=== PATIENT | female | born 1965 ===

== ENCOUNTER 2016-08-08 20:09 | Emergency (ER) | payer OTHER, SELFPAY ==
[2016-08-08 20:20] VITALS: O2SAT 100
[2016-08-08] MEDS ORDERED: Iohexol 240 (50 ml) PO STA (21:15)
[2016-08-08 21:44] LABS: BASO # 0.1 K/uL (0.0-0.2); BASO % 0.9 % (0.0-2.0); EOS # 0.2 K/uL (0.0-0.7); EOS % 3.1 % (0.0-4.0); HEMATOCRIT 33.2 % (34.0-47.0); LYMPH # 3.6 K/uL (1.0-4.3); LYMPH % 45.3 % (20.0-40.0); MEAN CORPUSCULAR HEMOGLOBIN 23.6 pg (27.0-31.0); MEAN CORPUSCULAR HGB CONC 33.1 g/dL (33.0-37.0); MEAN PLATELET VOLUME 8.6 fL (7.2-11.7); MONO # 0.6 K/uL (0.0-0.8); MONO % 7.1 % (0.0-10.0); NRBC % 0.1 % (0.0-2.0); RED CELL DISTRIBUTION WIDTH 15.7 % (11.5-14.5); WHITE BLOOD COUNT 7.9 K/uL (4.8-10.8)
[2016-08-08 21:45] LABS: MEAN CELL VOLUME 71.2 fL (81.0-99.0)
[2016-08-08 21:52] LABS: CHLORIDE 105 mmol/L (98-107); POTASSIUM 4.1 mmol/L (3.6-5.2); SODIUM 140 mmol/L (132-148)
[2016-08-08 21:54] LABS: ALB/GLOB RATIO 1.1 (1.0-2.1); ALKALINE PHOSPHATASE 91 U/L (38-126); AST/SGOT 23 U/L (14-36); BILIRUBIN,TOTAL 0.1 mg/dL (0.2-1.3); BLOOD UREA NITROGEN 16 mg/dL (7-17); CARBON DIOXIDE 23 mmol/L (22-30); GFR AFRICAN-AMERICAN > 60; TOTAL PROTEIN 7.1 g/dL (6.3-8.3)
[2016-08-08 21:55] LABS: ALT/SGPT 25 U/L (9-52); CALCIUM 7.8 mg/dl (8.6-10.4); GLUCOSE,RANDOM 104 mg/dL (65-105)
[2016-08-08] MEDS ORDERED: Morphine 4 MG/ML VIAL ONE (22:03)
[2016-08-08] MEDS ORDERED: Iohexol 240 (50 ml) ONE (22:04)
[2016-08-08 22:18] LABS: RBC URINE < 1 /hpf (0-3); URINE BILIRUBIN NEGATIVE (NEGATIVE); URINE BLOOD NEGATIVE (NEGATIVE); URINE COLOR Yellow (YELLOW); URINE GLUCOSE (UA) NORMAL (Normal); URINE KETONE NEGATIVE (NEGATIVE); URINE LEUKOCYTE ESTERASE NEG Leu/uL (Negative); URINE PROTEIN NEGATIVE (NEGATIVE); URINE UROBILINOGEN NORMAL mg/dL (0.2-1.0); WBC URINE 1 /hpf (0-5)
--- NOTE | 2016-08-08 23:03 | C.PDOC ---
History Of Present Illness 51 year old female presents to the ED with complaints of abdominal pain that she describes as across the mid and upper abdomen that began three days ago. Patient states she has had similar pain for the last three years but the symptoms are worse which prompted visit. She notes taking motrin yesterday with no relief. Patient denies any fever, vomiting, nausea, or urinary symptoms. Time Seen by Provider: 08/08/16 21:05 Chief Complaint (Nursing): Abdominal Pain History Per: Patient History/Exam Limitations: no limitations Onset/Duration Of Symptoms: Days Current Symptoms Are (Timing): Still Present Location Of Pain/Discomfort: Diffuse (mid and upper diffuse pain) Quality Of Discomfort: "Pain" Associated Symptoms: denies: Fever, Chills, Nausea, Vomiting Past Medical History Reviewed: Historical Data, Nursing Documentation, Vital Signs Vital Signs: Last Vital Signs Temp 98.2 F 08/09/16 00:30 Pulse 62 08/09/16 00:30 Resp 18 08/09/16 00:30 BP 132/76 08/09/16 00:30 Pulse Ox 100 08/09/16 01:02 - Medical History PMH: Asthma, Hyperlipidemia Family History: States: Unknown Family Hx - Social History Hx Alcohol Use: No Hx Substance Use: No Review Of Systems Constitutional: Negative for: Fever, Chills, Sweats Respiratory: Negative for: Cough, Shortness of Breath Gastrointestinal: Positive for: Abdominal Pain. Negative for: Nausea, Vomiting , Diarrhea Genitourinary: Negative for: Dysuria, Hematuria Physical Exam - Physical Exam Appears: Non-toxic, No Acute Distress Skin: Warm, Dry Neck: Normal ROM, Supple Chest: Symmetrical, No Deformity Cardiovascular: Rhythm Regular, No Murmur Respiratory: No Rales, No Rhonchi, No Wheezing Gastrointestinal/Abdominal: Soft, Tenderness (mid-epigastric tenderness), No Distention, No Guarding, No Rebound Extremity: Normal ROM, No Tenderness Neurological/Psych: Oriented x3, Normal Speech, Normal Cognition ED Course And Treatment - Laboratory Results Result Diagrams: 08/08/16 21:40 08/08/16 21:40 O2 Sat by Pulse Oximetry: 100 - CT Scan/US Abd Other Rad Studies (CT/US): Radiology Report Reviewed CT/US Interpretation: FINDINGS: Lower thorax: Patchy bilateral groundglass attenuation within the visualized. lung bases, a nonspecific finding. . ABDOMEN: Liver: The liver is enlarged. Gallbladder and bile ducts: The gallbladder is decompressed. No calcified. stones. No significant intra- or extrahepatic biliary ductal dilation. Pancreas: Enhances homogeneously. No ductal dilation. No discrete mass. Spleen: No acute findings. Adrenals: No acute findings. Kidneys and ureters: No acute findings. No hydronephrosis or renal calculi. No discrete solid mass. . PELVIS: Bladder: No acute findings. Reproductive: No acute findings. Appendix: The air filled appendix is of normal caliber (series 2, image 60;. series 601, image 56. . ABDOMEN and PELVIS: Stomach and bowel: Oral contrast extends to the proximal small bowel, without. obstruction.Small bowel wall thickening but no surrounding inflammation or. fluid to confirm an acute enteritis. Peritoneum: No significant fluid collection. No free air. Lymph nodes: No pathologically enlarged lymph nodes. Vasculature: Unremarkable. Bones: No acute fracture. . IMPRESSION: Mural thickening within multiple loops of small bowel, without surrounding. inflammation or fluid to confirm an acute enteritis. . Dictated By: Bobbi Chan MD. Dictated Date/Time: 08/09/16 0051 Medical Decision Making Medical Decision Making: Pt remained stable in the ed Abd remained soft Unremarkable CT and labs discussed with pt Plan dc home clinic f/u Disposition Counseled Patient/Family Regarding: Diagnosis, Need For Followup - Disposition Referrals: Mare Pal MD [Medical Doctor] - Disposition: HOME/ ROUTINE Disposition Time: 00:58 Condition: GOOD Additional Instructions: Follow up with PMD Return to the ED for any new or worsening symptoms Prescriptions: Atropine/Hyoscyamine [] 1 tab PO TID PRN #20 tab PRN Reason: .abd pain Famotidine [Pepcid] 1 tab PO BID #30 tab Instructions: Abdominal Pain (ED) - Clinical Impression Clinical Impression: Abdominal pain - Scribe Statement The provider has reviewed the documentation as recorded by the Scribe Elba Hernández All medical record entries made by the Bridgetibe were at my direction and personally dictated by me. I have reviewed the chart and agree that the record accurately reflects my personal performance of the history, physical exam, medical decision making, and the department course for this patient. I have also personally directed, reviewed, and agree with the discharge instructions and disposition.
[2016-08-08] MEDS ORDERED: Iodixanol 320 MG/ML 100 ML BOTTLE IV ONE (23:44)
--- NOTE | 2016-08-09 00:51 | CT ---
EXAM: CT Abdomen and Pelvis With Intravenous Contrast CLINICAL HISTORY: 51 years old, female; Pain; Abdominal pain; Acute; Additional info: Mid abd pain TECHNIQUE: Axial computed tomography images of the abdomen and pelvis with intravenous contrast. This CT exam was performed using one or more of the following dose reduction techniques: automated exposure control, adjustment of the mA and/or kV according to patient size, and/or use of iterative reconstruction technique. Coronal and sagittal reformatted images were created and reviewed. CONTRAST: 100 mL of visi administered intravenously. COMPARISON: No relevant prior studies available. FINDINGS: Lower thorax: Patchy bilateral groundglass attenuation within the visualized lung bases, a nonspecific finding. ABDOMEN: Liver: The liver is enlarged. Gallbladder and bile ducts: The gallbladder is decompressed. No calcified stones. No significant intra- or extrahepatic biliary ductal dilation. Pancreas: Enhances homogeneously. No ductal dilation. No discrete mass. Spleen: No acute findings. Adrenals: No acute findings. Kidneys and ureters: No acute findings. No hydronephrosis or renal calculi. No discrete solid mass. PELVIS: Bladder: No acute findings. Reproductive: No acute findings. Appendix: The air filled appendix is of normal caliber (series 2, image 60; series 601, image 56. ABDOMEN and PELVIS: Stomach and bowel: Oral contrast extends to the proximal small bowel, without obstruction.Small bowel wall thickening but no surrounding inflammation or fluid to confirm an acute enteritis. Peritoneum: No significant fluid collection. No free air. Lymph nodes: No pathologically enlarged lymph nodes. Vasculature: Unremarkable. Bones: No acute fracture. IMPRESSION: Mural thickening within multiple loops of small bowel, without surrounding inflammation or fluid to confirm an acute enteritis.
[2016-08-09 01:13] VITALS: BP 132/76; PULSE 62; RESP 18; TEMP 98.2
== END 2016-08-09 01:13 | disposition home or self-care (01) ==
LOC: C.ER 20:09
DX: R10.13 Epigastric pain (principal)
CPT/HCPCS: 74177; 80053; 81001; 83690; 85025; 96374; 96375; 99285; J2270; Q9966; Q9967

== ENCOUNTER 2017-08-19 15:51 | Emergency (ER) | payer OTHER, SELFPAY ==
--- NOTE | 2017-08-19 16:29 | C.PDOC ---
History Of Present Illness 52-YEAR-OLD FEMALE, PRESENTS TO THE EMERGENCY DEPARTMENT WITH COMPLAINTS OF BACK PAIN, B/L X1 WEEK. LOWER PELVIC, SUPRAPUBIC PAIN X5 DAYS, ASSOCIATED DYSURIA. BACK PAIN WORSE W STANDING UPRIGHT. NO NVD, FEVER. LTD IMPROVEMENT W OTC PAIN MEDS. EXAM PAIN WITH FULL EXTENSION, NO SPASM. ABD NEG NEURO INTACT Time Seen by Provider: 08/19/17 16:08 Chief Complaint (Nursing): Back Pain History Per: Patient History/Exam Limitations: no limitations Past Medical History Reviewed: Historical Data, Nursing Documentation, Vital Signs Vital Signs: Last Vital Signs Temp 98.1 F 08/19/17 15:56 Pulse 75 08/19/17 15:56 Resp 16 08/19/17 15:56 BP 119/79 08/19/17 15:56 Pulse Ox 100 08/19/17 16:40 - Medical History PMH: Asthma, Hyperlipidemia Family History: States: No Known Family Hx - Social History Hx Alcohol Use: No Hx Substance Use: No - Immunization History Hx Tetanus Toxoid Vaccination: No Hx Influenza Vaccination: No Hx Pneumococcal Vaccination: No Review Of Systems Constitutional: Negative for: Fever Genitourinary: Positive for: Dysuria, Pelvic Pain. Negative for: Hematuria, Vaginal Discharge, Vaginal Bleeding Musculoskeletal: Positive for: Back Pain Skin: Negative for: Rash Neurological: Negative for: Weakness, Numbness, Headache, Dizziness Physical Exam - Physical Exam Appears: Non-toxic, No Acute Distress Skin: Normal Color, Warm, Dry, No Rash Head: Normacephalic Eye(s): bilateral: PERRL Nose: Normal Oral Mucosa: Moist Lips: Normal Appearing Neck: Normal ROM Cardiovascular: Rhythm Regular, No Murmur Respiratory: Normal Breath Sounds, No Accessory Muscle Use Gastrointestinal/Abdominal: Soft, No Tenderness, No Guarding, No Rebound Back: Other (PAIN WITH FULL EXTENSION, NO SPASM. ) Extremity: Normal ROM, No Deformity, No Swelling Neurological/Psych: Oriented x3, Normal Speech Gait: Steady ED Course And Treatment - Laboratory Results Result Diagrams: 08/19/17 17:25 08/19/17 17:25 O2 Sat by Pulse Oximetry: 100 (RA) Pulse Ox Interpretation: Normal Disposition - Disposition Disposition Time: 19:00 Condition: STABLE Forms: [email or web address] (Hebrew) - Clinical Impression Clinical Impression: Low back pain, Abdominal pain - Scribe Statement The provider has reviewed the documentation as recorded by the Scribe (Vik Arce) All medical record entries made by the Scribe were at my direction and personally dictated by me. I have reviewed the chart and agree that the record accurately reflects my personal performance of the history, physical exam, medical decision making, and the department course for this patient. I have also personally directed, reviewed, and agree with the discharge instructions and disposition. Physician Patient Turnover Patient Signed Over To: Tomas Treadwell Handoff Comments: DARREN PHELPS
[2017-08-19 16:33] LABS: SQUAMOUS EPITHIAL < 1 /hpf (0-5); URINE BILIRUBIN NEGATIVE (NEGATIVE); URINE BLOOD NEGATIVE (NEGATIVE); URINE CLARITY Clear (Clear); URINE COLOR Yellow (YELLOW); URINE GLUCOSE (UA) NORMAL (Normal); URINE LEUKOCYTE ESTERASE NEG Leu/uL (Negative); URINE PROTEIN NEGATIVE (NEGATIVE); URINE UROBILINOGEN NORMAL mg/dL (0.2-1.0)
[2017-08-19 17:28] LABS: BASO # 0.1 K/uL (0.0-0.2); BASO % 0.9 % (0.0-2.0); EOS # 0.3 K/uL (0.0-0.7); EOS % 3.1 % (0.0-4.0); HEMOGLOBIN 13.5 g/dL (11.0-16.0); LYMPH # 2.8 K/uL (1.0-4.3); LYMPH % 33.2 % (20.0-40.0); MEAN CORPUSCULAR HEMOGLOBIN 27.3 pg (27.0-31.0); MEAN CORPUSCULAR HGB CONC 34.7 g/dL (33.0-37.0); MEAN PLATELET VOLUME 8.3 fL (7.2-11.7); MONO # 0.5 K/uL (0.0-0.8); MONO % 6.6 % (0.0-10.0); NEUT # 4.7 K/uL (1.8-7.0); NEUT % 56.2 % (50.0-75.0); NRBC % 0.1 % (0.0-2.0); RBC 4.93 Mil/uL (3.80-5.20)
[2017-08-19 17:30] LABS: MEAN CELL VOLUME 78.7 fL (81.0-99.0); WHITE BLOOD COUNT 8.3 K/uL (4.8-10.8)
[2017-08-19 17:58] LABS: BLOOD UREA NITROGEN 13 mg/dL (7-17); GFR AFRICAN-AMERICAN > 60; GFR NON-AFRICAN AMERICAN > 60
[2017-08-19] MEDS ORDERED: Iohexol 300 100 ML IJ ONE (18:32)
--- NOTE | 2017-08-19 21:22 | CT ---
EXAM: CT Abdomen and Pelvis With Intravenous Contrast CLINICAL HISTORY: 52 years old, female; Pain; Abdominal pain; Flank; Lower; Additional info: Abd pain TECHNIQUE: Axial computed tomography images of the abdomen and pelvis with intravenous contrast. All CT scans at this facility use one or more dose reduction techniques, viz.: automated exposure control; ma/kV adjustment per patient size (including targeted exams where dose is matched to indication; i.e. head); or iterative reconstruction technique. Coronal and sagittal reformatted images were created and reviewed. CONTRAST: 100 mL of omnipaque 300 administered intravenously. COMPARISON: No relevant prior studies available. FINDINGS: Lung bases: Few pulmonary nodules, up to 0.3 cm. Mild atelectasis/scarring. ABDOMEN: Liver: Fatty infiltration. Gallbladder and bile ducts: No calcified stones. No ductal dilation. Pancreas: No ductal dilation. No mass. Spleen: No splenomegaly. Adrenals: No mass. Kidneys and ureters: Too small to characterize lesion within LEFT kidney. No hydronephrosis. Mild prominence of ureters. Stomach and bowel: No definite mural thickening. No obstruction. PELVIS: Appendix: Normal caliber. No inflammation. Bladder: Mildly distended bladder. Reproductive: 2.0 x 2.0 x 1.8 cm hypodense lesion within uterine fundus. ABDOMEN and PELVIS: Intraperitoneal space: Trace free fluid within pelvis. No free air. Bones/joints: No acute fracture. Soft tissues: 1.2 x 1.2 x 1.8 cm soft tissue lesion within left posterior breast. Small umbilical hernia containing fat. Vasculature: Unremarkable. No aneurysm. Lymph nodes: No pathologically enlarged lymph nodes. IMPRESSION: 1. No definite acute intraabdominal abnormality. 2. Probable uterine fibroid. Consider ultrasound. 3. Probable prominent lymph node within left breast. Followup as clinically warranted. 4. Pulmonary nodules. For low-risk patients, no follow-up is necessary. For high-risk patients (smoking history or other known risk factors) an optional CT at 12 months could be performed. 5. Incidental/non-acute findings are described above.
[2017-08-19 21:53] VITALS: BP 130/85; PULSE 61; RESP 18; TEMP 97.4; O2SAT 99
== END 2017-08-19 21:54 | disposition home or self-care (01) ==
LOC: C.ER 15:51
DX: M54.5 Low back pain (principal); R10.30 Lower abdominal pain, unspecified
CPT/HCPCS: 74177; 80048; 81001; 85025; 99283; Q9967

== ENCOUNTER 2018-05-12 12:44 | Outpatient (CLI) | payer OTHER, SELFPAY | END 2018-05-12 12:45 | disposition home or self-care (01) | LOC: C.USIC 12:44 | DX: D21.9 Benign neoplasm of connective and other soft tissue, unspecified (principal) ==

== ENCOUNTER 2018-05-27 09:48 | Outpatient (CLI) | payer OTHER | END 2018-05-27 09:49 | disposition home or self-care (01) | LOC: C.LAB 09:48 | DX: E78.5 Hyperlipidemia, unspecified (principal); R73.02 Impaired glucose tolerance (oral); Z00.01 Encounter for general adult medical examination with abnormal findings ==